=== PATIENT | male | born 1985 | race Caucasian/White ===

== ENCOUNTER 2019-12-18 12:31 | Day surgery (SDC) | payer OTHER, SELFPAY ==
[2019-12-18] VITALS (8 sets, daily range): BP systolic 134–173; BP diastolic 83–110; PULSE 89–113; RESP 14–20; TEMP 36.2–37.3; O2SAT 95–100
--- NOTE | ~2019-12-18 | CT_ITS ---
EXAMINATION: CT abdomen pelvis w con DATE: 12/18/2019 13:56 INDICATION: Abdominal pain. Diarrhea. TECHNIQUE: Computed tomography (CT) of the abdomen and pelvis was performed without intravenous contr ast. The dose-length product was 845.89 mGy-cm. Automated exposure control and iterative reconstructi on technique were employed. COMPARISON: None. FINDINGS: Lung bases are unremarkable. Heart size normal. No significant pleural or pericardial effus ion. Fatty infiltration of the liver. The spleen, pancreas, adrenal glands and kidneys are unremarkable. G allbladder is present. Nonobstructive bowel gas pattern. The appendix is thickened measuring 1.4 cm and contains an appendicolith. Minimal surrounding periapp endiceal inflammation. Colonic diverticulosis without evidence for diverticulitis. There is mild thic kening of the colon and rectum, suspicious for colitis. Small hiatal hernia. No significant vascular abnormality. No lymphadenopathy. IMPRESSION: 1. Thickened appendix containing an appendicolith. Minimal periappendiceal inflammation. Findings roverto picious for uncomplicated appendicitis. 2: Mild diffuse thickening of the colon rectum, suspicious for colitis. Reviewed, dictated and finalized at location A. IMPRESSION: 1. Thickened appendix containing an appendicolith. Minimal periappendiceal infl ammation. Findings suspicious for uncomplicated appendicitis. 2: Mild diffuse thickening of the colon rectum, suspicious for colitis.
[2019-12-18 13:12] LABS: Basophils Percent Auto 0.3 % (0.2-1.2); Eosinophils Absolute Auto 0.1 K/mm3 (0-0.3); Eosinophils Percent Auto 0.9 % (0-4.4); Hematocrit 49.2 % (42.0-52.0); Hemoglobin 17.3 g/dL (14.0-18.0); Immature Granulocyte Absolute 0.01 K/mm3 (0.00-0.031); Immature Granulocyte Percent A 0.1 % (0-0.5); Lymphocytes Absolute Auto 2.03 K/mm3 (0.9-3.2); Lymphocytes Percent Auto 22.9 % (18.3-44.2); Mean Corpuscular HGB Conc 35.2 g/dl (32-36); Mean Corpuscular Hemoglobin 29.6 pg (26-34); Mean Corpuscular Volume 84.2 fl (80-100); Mean Platelet Volume 9.8 fl (7.4-10.4); Monocytes Absolute Auto 0.4 K/mm3 (0.1-0.6); Monocytes Percent Auto 4.2 % (2.6-8.5); Neutrophils Absolute Auto 6.4 K/mm3 (1.3-6.7); Neutrophils Percent Auto 71.6 % (45.5-73.1); Platelet Count Result 294 k/mm3 (150-375); Red Blood Count 5.84 M/mm3 (4.6-6.20); Red Cell Distribution Width 13.3 % (11.5-14.5); White Blood Count 8.9 K/mm3 (4.5-10.0)
[2019-12-18] MEDS: SODIUM CHLORIDE 0.9% IV 1,000 ML 999 ML IV CONT (13:15)
[2019-12-18 13:18] LABS: Add Urine Microscopic? YES; Appearance Urine Clear (Clear); Bilirubin Urine Negative (Negative); Blood Urine Negative (Negative); Color Urine Yellow (Yellow); Glucose Urine UA Negative (Negative); Ketones Urine Negative (Negative); Leukocyte Esterase Ur Negative LEU/UL (Negative); Mucus Urine Rare /lpf; Nitrate Urine Negative (Negative); Protein Urine 1+ mg/dL (Negative); RBC Urine 0-2 /hpf (0-2); Specific Grav Ur 1.018 (1.001-1.035); Urobilinogen Urine Negative mg/dL (<2.0); WBC Urine 0-3 /hpf
[2019-12-18 13:24] LABS: Alanine Aminotransferase 43 U/L (4-50); Albumin Level 4.8 g/dL (3.5-5.1); Alkaline Phosphatase 100 U/L (38-126); Aspartate Amino Transferase 26 U/L (17-59); Bilirubin,Total 0.5 mg/dL (0.2-1.3); Blood Urea Nitrogen 10 mg/dL (9-20); Calcium 9.6 mg/dL (8.4-10.2); Carbon Dioxide 24 mmol/L (22-30); Chloride 106 mmol/L (98-107); Estimated CRCL calculation 111 ml/min; Estimated Glomerular Filt Rate > 60; Glucose 132 mg/dL (75-110); Lipase 133 U/L (23-300); Sodium 138 mmol/L (137-145)
--- NOTE | 2019-12-18 14:25 | ED.ABDPAIN ---
HPI - Abdominal Pain General Chief Complaint: Abdominal Pain Stated Complaint: abd pain Time Seen by Provider: 12/18/19 12:40 History of Present Illness HPI narrative: Patient is a 34-year-old male who presents ER with abdominal pain. Began at 5 AM is continued to progress throughout the day. He had several loose stools have been of small caliber today. Patient is found no alleviating factors. Symptoms are worse with movement and palpation of his abdomen. No nausea/vomiting/fever/chills/sweats. No burning urination or urinary frequency or urgency. He has been without hematuria or blood in his stool. Related Data Home Medications Medication Instructions Recorded Confirmed escitalopram oxalate mg 12/18/19 quetiapine 12/18/19 12/18/19 Allergies Allergy/AdvReac Type Severity Reaction Status Date / Time Penicillins Allergy Unknown Unknown Verified 12/18/19 14:30 Review of Systems Review of Systems: All systems reviewed & are unremarkable except as noted in HPI and below Constitutional: Constitutional: Denies chills, Denies fever(s) and Denies weakness ENT: Denies nasal congestion and Denies sore throat Comments: Positive rhinorrhea Cardiovascular: Cardiovascular: Denies chest pain Respiratory: Respiratory: Denies cough, Denies dyspnea and Denies wheezing Gastrointestinal: Gastrointestinal: Reports abdominal pain, Reports diarrhea, Denies nausea and Denies vomiting Genitourinary: Genitourinary: Denies hematuria, Denies dysuria and Denies urinary frequency PMFSH Past Medical History Medical History (Updated 12/18/19 @ 14:47 by Freddie Castillo MD) Pulmonary embolism Spontaneous pneumothorax 5 times Surgical History Surgical History (Updated 12/18/19 @ 14:28 by Freddie Castillo MD) No significant past surgical history Social History Social History (Updated 12/18/19 @ 14:29 by Freddie Castillo MD) Smoking status: Current every day smoker Tobacco type: cigarettes Gender identity (if verbalized by the patient): Male Exam Narrative: Exam Narrative: GENERAL: Uncomfortable-appearing, well-nourished, and in no acute distress. HEAD: Normocephalic, atraumatic. ENT: Mucous membranes moist. CHEST: Clear to auscultation. No respiratory distress. HEART: Tachycardic and regular. Normal peripheral pulses. ABDOMEN: Soft, TTP to the RLQ with guarding referring to RUQ, nondistended. EXTREMITIES: Normal range of motion. No edema. SKIN: Warm, dry, no rash. NEURO: Alert and oriented x3. Course Course Emergency Course: Patient informed results. Discussed case with Dr. García who will take patient to the OR today. Invanz ordered for antibiotics. Patient has been n.p.o. in the ER. Vital Signs Vital signs: Vital Signs Temperature 97.4 F L 12/18/19 12:49 Pulse Rate 110 H 12/18/19 12:49 Respiratory Rate 18 12/18/19 12:49 Blood Pressure 162/110 H 12/18/19 12:49 Pulse Oximetry 98 12/18/19 12:49 Temperature 99.1 F 12/18/19 14:24 Pulse Rate 89 12/18/19 14:24 Respiratory Rate 18 12/18/19 14:24 Blood Pressure 173/99 H 12/18/19 14:24 Pulse Oximetry 99 12/18/19 14:24 MDM - Abdominal Pain Lab Data Result diagrams: 12/18/19 13:05 12/18/19 13:05 Labs: Lab Results 12/18/19 12/18/19 12/18/19 Range/Units 13:05 13:05 13:09 WBC 8.9 (4.5-10.0) K/mm3 RBC 5.84 (4.6-6.20) M/mm3 Hgb 17.3 (14.0-18.0) g/dL Hct 49.2 (42.0-52.0) % MCV 84.2 (80-100) fl MCH 29.6 (26-34) pg MCHC 35.2 (32-36) g/dl RDW 13.3 (11.5-14.5) % Plt Count 294 (150-375) k/mm3 MPV 9.8 (7.4-10.4) fl Immature Gran % (Auto) 0.1 (0-0.5) % Neut % (Auto) 71.6 (45.5-73.1) % Lymph % (Auto) 22.9 (18.3-44.2) % [place] % (Auto) 4.2 (2.6-8.5) % Eos % (Auto) 0.9 (0-4.4) % Baso % (Auto) 0.3 (0.2-1.2) % Lymph # (Auto) 2.03 (0.9-3.2) K/mm3 [place] # (Auto) 0.4 (0.1-0.6) K/mm3 Eos # (Auto) 0.1 (0-0.3
[2019-12-18] MEDS: ONDANSETRON INJ 4 MG/2 ML VIAL IV PUSH (14:28)
[2019-12-18] MEDS: MORPHINE SULFATE 4 MG/ML INJ IV PUSH (14:29)
--- NOTE | 2019-12-18 14:29 | PC.NURSE ---
Reports last liquid intake aproximately 4 hours ago. Last solid intake approximately 1999 on 12/17/2019
--- NOTE | 2019-12-18 14:31 | PC.NURSE ---
Patient uses [facility]
[2019-12-18] MEDS: ERTAPENEM 1 GM/NS 50 ML 1 GM/50 ML BAG IVPB (14:50)
--- NOTE | 2019-12-18 14:56 | PM.SD ---
Same Day Admit/Disch: [facility] History of Present Illness Chief complaint: abd pain Narrative: Sarabjit Shah is a 34 year old male who developed right lower quadrant abdominal pain about 5:00 a.m. this morning. Pain got worse with time and he had some small loose stools. He has not had any nausea or vomiting. He does noticed increased pain with motion or ambulation. He was seen in the emergency room. He had tenderness with guarding in the right lower quadrant. His white blood cell count was normal. He had a CT scan which showed a thickened 1.4 cm appendix with appendicoliths consistent with early appendicitis. He is taken to surgery now as an outpatient for laparoscopic appendectomy. [facility] Past Medical History Medical History Pulmonary embolism Spontaneous pneumothorax 5 times Surgical History Surgical History No significant past surgical history Social History Social History Smoking status: Current every day smoker Tobacco type: cigarettes Gender identity (if verbalized by the patient): Male Same Day Admit/Disch: Med Pre-admit Medications Home Medications Medication Instructions Recorded Confirmed Type escitalopram oxalate [Lexapro] 20 mg PO DAILY 12/18/19 12/18/19 History hydrocodone-acetaminophen 1 - 2 tablet PO Q6H PRN #7 tablet 12/18/19 Rx ibuprofen 600 mg PO Q6H PRN #14 tablet 12/18/19 Rx quetiapine [Seroquel] 200 mg PO DAILY 12/18/19 12/18/19 History Exam Const: General: cooperative, healthy appearing, no acute distress, alert, awake, ill appearing, uncomfortable and well groomed Nutritional Appearance: thin Orientation/consciousness: patient oriented x3 HENMT: Head: normocephalic and atraumatic Mouth: Yes Normal oral and palatal mucosa present Eyes: Conjunctivae: conjunctivae normal Pupils: Equal, round and reactive pupils present EOM: EOMs intact bilaterally Neck: Neck: normal visual inspection, no lymphadenopathy and nontender Resp: Effort & Inspection: normal respiratory effort Auscultation: clear to auscultation bilaterally Cardio: Rate: regular rate Rhythm: regular rhythm Heart sounds: no gallops, no murmurs and no rubs GI: Inspection: normal to inspection, non-distended and no scars GI Palp: Yes Soft to palpation, Yes Tenderness to palpation present (GI) (Right lower quadrant hat McBurney's point), Yes Guarding due to palpation present (GI), No Hepatomegaly present, No Splenomegaly present and Yes Rebound tenderness present Auscultation: normal bowel sounds Skin: Lesions: no lesions Rashes: no rashes Neuro: General: no focal motor deficits and CN's II-XI intact bilaterally Cranial nerves: Yes Equal, round and reactive pupils present, Yes Bilaterally intact EOM present, Yes facial symmetry and Yes Midline tongue present Speech: normal speech Motor exam (neuro): 5/5 motor strength present throughout and Motor abnormalities not present Extrem: General: no clubbing, cyanosis or edema and edema Psych: Affect: normal affect Thought process: Normal thought process present Insight: Good insight present (Psych) DS: Data Data Completed and Pending Labs on day of discharge: Labs from last 24 hours 12/18/19 12/18/19 12/18/19 13:09 13:05 13:05 WBC 8.9 RBC 5.84 Hgb 17.3 Hct 49.2 MCV 84.2 MCH 29.6 MCHC 35.2 RDW 13.3 Plt Count 294 MPV 9.8 Immature Gran % (Auto) 0.1 Neut % (Auto) 71.6 Lymph % (Auto) 22.9 [place] % (Auto) 4.2 Eos % (Auto) 0.9 Baso % (Auto) 0.3 Lymph # (Auto) 2.03 [place] # (Auto) 0.4 Eos # (Auto) 0.1 Baso # (Auto) 0.0 Abs Immat Gran (auto) 0.01 Absolute Neuts (auto) 6.4 Absolute Nucleated RBC 0.0 Nucleated RBC % 0.0 Sodium 138 Potassium 4.0 Chloride 106 Carbon Dioxide 24 BUN 10 Creatinine 0.90 Estim
--- NOTE | 2019-12-18 15:00 | PC.NURSE ---
[facility] arrived from pharmacy and was taken to Pre-op with patient and given to his nurse at that time. Verbal bedside report was given to the pre-op RN.
--- NOTE | 2019-12-18 15:19 | WPDANESEPP ---
Anes - Eval Pre Procedure Procedure: Operation Date: 12/18/19 15:00 Proposed Procedures p Laparoscopic Appendectomy - Ace García MD Date/Time: 12/18/19 15:19 Surgeon: Yanira García M.D. Pre Op Diagnosis: abd pain Patient Data Age: 34 Gender: M Height: 1.83 m Weight: 96 kg Last Vital Signs Temp 37.3 C 12/18/19 14:24 Pulse 89 12/18/19 14:24 Resp 18 12/18/19 14:24 BP 173/99 H 12/18/19 14:24 Pulse Ox 99 12/18/19 14:24 Allergies Allergy/AdvReac Type Severity Reaction Status Date / Time Penicillins Allergy Unknown Fever Verified 12/18/19 15:22 Home Medications Medication Instructions Recorded Confirmed Type escitalopram oxalate mg 12/18/19 History quetiapine 12/18/19 12/18/19 History Laboratory Tests 12/18/19 12/18/19 12/18/19 13:05 13:05 13:09 WBC 8.9 K/mm3 K/mm3 (4.5-10.0) RBC 5.84 M/mm3 M/mm3 (4.6-6.20) Hgb 17.3 g/dL g/dL (14.0-18.0) Hct 49.2 % % (42.0-52.0) MCV 84.2 fl fl (80-100) MCH 29.6 pg pg (26-34) MCHC 35.2 g/dl g/dl (32-36) RDW 13.3 % % (11.5-14.5) Plt Count 294 k/mm3 k/mm3 (150-375) MPV 9.8 fl fl (7.4-10.4) Immature Gran % (Auto) 0.1 % % (0-0.5) Neut % (Auto) 71.6 % % (45.5-73.1) Lymph % (Auto) 22.9 % % (18.3-44.2) [place] % (Auto) 4.2 % % (2.6-8.5) Eos % (Auto) 0.9 % % (0-4.4) Baso % (Auto) 0.3 % % (0.2-1.2) Lymph # (Auto) 2.03 K/mm3 K/mm3 (0.9-3.2) [place] # (Auto) 0.4 K/mm3 K/mm3 (0.1-0.6) Eos # (Auto) 0.1 K/mm3 K/mm3 (0-0.3) Baso # (Auto) 0.0 K/mm3 K/mm3 (0.0-0.1) Abs Immat Gran (auto) 0.01 K/mm3 K/mm3 (0.00-0.031) Absolute Neuts (auto) 6.4 K/mm3 K/mm3 (1.3-6.7) Absolute Nucleated RBC 0.0 K/mm3 K/mm3 (0.0-0.012) Nucleated RBC % 0.0 % % (0.0-0.2) Sodium 138 mmol/L mmol/L (137-145) Potassium 4.0 mmol/L mmol/L (3.4-5.0) Chloride 106 mmol/L mmol/L (98-107) Carbon Dioxide 24 mmol/L mmol/L (22-30) BUN 10 mg/dL mg/dL (9-20) Creatinine 0.90 mg/dL mg/dL (0.7-1.3) Estim Creat Clear Calc 111 ml/min ml/min Estimated GFR > 60 (59 - ) Glucose 132 mg/dL H mg/dL (75-110) Calcium 9.6 mg/dL mg/dL (8.4-10.2) Total Bilirubin 0.5 mg/dL mg/dL (0.2-1.3) AST 26 U/L U/L (17-59) ALT 43 U/L U/L (4-50) Alkaline Phosphatase 100 U/L U/L (38-126) Total Protein 8.0 g/dL g/dL (6.3-8.2) Albumin 4.8 g/dL g/dL (3.5-5.1) Lipase 133 U/L U/L (23-300) Urine Color Yellow (Yellow) Urine Appearance Clear (Clear) Urine pH 8.0 (5.0-9.0) Ur Specific [place] 1.018 (1.001-1.035) Urine Protein 1+ mg/dL H mg/dL (Negative) Urine Glucose (UA) Negative mg/dL mg/dL (Negative) Urine Ketones Negative mg/dL mg/dL (Negative) Ur Blood (Man) Negative (Negative) Urine Nitrate Negative (Negative) Urine Bilirubin Negative (Negative) Urine Urobilinogen Negative mg/dL mg/dL (<2.0) Leukocyte Esterase Rfl Negative SHANON/UL SHANON/UL (Negative) Urine RBC 0-2 /hpf /hpf (0-2) Urine WBC 0-3 /hpf /hpf Urine Mucus Rare /lpf /lpf Patient hx anesthesia problems: none Family hx anesthesia problems: none PMFSH Past Medical History Medical History Pulmonary embolism Spontaneous pneumothorax 5 times Surgical History Surgical History No significant past surgical history Social History Social History Smoking status:
--- NOTE | 2019-12-18 15:37 | WPDANESEFPP ---
Anes - Eval Final PreProcedure Day of Procedure 12/18/19 15:37 Patient weight: overweight Heart: regular rate and rhythm Lungs: clear to auscultation Airway: Mallampati scale class II Neurological: alert and oriented Last oral intake: >/= 8 hours ASA classification: III Emergent: yes Anesthetic plan: proceed Anesthesia type and monitoring: general ETT and standard monitoring Informed Consent: The patient's anesthetic plan and its attendant risks and benefits were discussed with the patient/family/POA. Questions were solicited and answers provided to the satisfaction of the patient/family/POA.
[2019-12-18] MEDS: LACTATED RINGERS 1,000 ML 30 ML IV CONT ×2 (15:39→16:38)
[2019-12-18] MEDS: BUPIVACAINE/EPINEPHRINE 0.5% 30 ML VIAL INFILTRATE (16:02)
--- NOTE | 2019-12-18 16:21 | PM.PROC ---
Procedure Note - Detailed Date of procedure: 12/18/19 Pre-op diagnosis: abd pain acute appendicitis Post-op diagnosis: same Procedure performed: Laparoscopic appendectomy Description of procedure: The patient was taken to surgery and induced into general anesthesia. The abdomen was prepped and draped. Trocars were placed in the usual fashion using 0.5% Marcaine with epinephrine and applied Medical optical trocars. A 5 mm camera was used. The patient was placed in Trendelenburg with the right side elevated. The appendix was found and was elevated anteriorly. Dissection was carried out in the mesoappendix. The mesoappendix was dissectedand the appendiceal vessels cauterized for hemostasis. Eventually the base of the appendix was skeletonized. The appendix was ligated at its base with a Vicryl endo-loop. It was amputated just above the ligature and the mucosa of the appendiceal stump was cauterized. The appendix was immediately placed in an Endo-Catch bag and retrieved through the 10 11 left lower quadrant trocar site. We replaced the 10 11 trocar and reviewed the right lower quadrant and areas of dissection. All looked good with no evidence of bleeding or other problems. We evacuated CO2 and removed the trocar sleeves. Skin wounds were closed with subcuticular 4 O Monocryl skin suture. The wounds were dressed with Exofin surgical adhesive. The patient was awakened and taken to recovery in good condition. Sponge and needle counts were correct x2. Anesthesia: GETA and local (0.5% Marcaine with epinephrine) Surgeon: Ace García MD Cardiovascular Lab Director: Hira ADAMS Estimated blood loss (mL): 5 Drains: No Packing: No Pathology: yes (Appendix) Complications: None Condition: stable Disposition: PACU Findings: Acute non perforated appendicitis
== END 2019-12-18 17:56 | disposition home or self-care (01) ==
LOC: ANHED 14:48 → ANHSURGERY 14:48
PROVIDERS: Emergency Provider Emergency Medicine; Visit Provider Surgery
PROC: 0DTJ4ZZ Resection of Appendix, Percutaneous Endoscopic Approach (ICD-10-PCS; CPT 44970; principal; 2019-12-18 15:00)
DX: K38.8 Other specified diseases of appendix (principal); F17.210 Nicotine dependence, cigarettes, uncomplicated; Z86.711 Personal history of pulmonary embolism
CPT/HCPCS: 44970; 36415; 74177; 80053; 81001; 83690; 85025; 88304; 96374; 96375; 99285; J0330; J1100; J1335; J2250; J2270; J2405; J2704; J2710; J3010; J7030; J7120; Q9967

== ENCOUNTER 2020-03-12 08:17 | Emergency (ER) | payer OTHER, SELFPAY ==
--- NOTE | ~2020-03-12 | CT_ITS ---
EXAMINATION: CTA chest PE protocol DATE: 03/12/2020 09:03 INDICATION: Dyspnea. TECHNIQUE: Computed tomography angiography (CTA) of the chest was performed with 100 mL Omnipaque-350 intravenous contrast timed to evaluate the pulmonary arteries. Coronal maximum intensity projection 3D-reconstructions were created by the technologist. Automated exposure control and iterative reconst ruction technique were employed. The dose-length product was 624.52 mGy-cm. COMPARISON: Chest CT 06/01/2018 FINDINGS: There is mild emphysema. There are staple lines at the lung apices. There is mild atelectas is bilaterally. There is a trace left pleural effusion. The heart size is normal. No pericardial effu jimena. There is no pulmonary embolus. There is mild right hilar lymphadenopathy, likely reactive. Ther e is diffuse hepatic steatosis. There is mild thoracic spondylosis. IMPRESSION: 1. No pulmonary embolus. 2. Mild emphysema. Reviewed, dictated and finalized at location A.
--- NOTE | ~2020-03-12 | XR_ITS ---
EXAMINATION: XR chest 1V portable EXAM DATE: 03/12/2020 08:36 INDICATION: Shortness of breath. TECHNIQUE: Portable AP frontal chest x-ray was obtained. Comparison is made to prior examination from 06/01/2018. FINDINGS: The lungs are clear. There are no pleural effusions. Mild cardiomegaly. There is no pneu mothorax suspected. The bones and soft tissues are unremarkable. IMPRESSION: No acute cardiopulmonary findings. Reviewed, dictated and finalized at location A.
[2020-03-12 08:23] VITALS: BP 133/98; PULSE 131; RESP 17; TEMP 36.7; O2SAT 98
--- NOTE | 2020-03-12 08:28 | ECG_ITS ---
Measurements Intervals [place] Rate: 127 P: 50 CA: 156 QRS: 29 QRSD: 88 T: 19 QT: 311 QTc: 452 Interpretive Statements SINUS TACHYCARDIA INCOMPLETE RIGHT BUNDLE BRANCH BLOCK BORDERLINE T WAVE ABNORMALITY- INFERIOR LEADS ABNORMAL ECG Electronically Signed On 03-12-2020 8:54:38 CDT by Regino Wilson D.O.
[2020-03-12 08:44] LABS: Basophils Percent Auto 0.7 % (0.2-1.2); Eosinophils Absolute Auto 0.1 K/mm3 (0-0.3); Eosinophils Percent Auto 2.2 % (0-4.4); Hematocrit 43.9 % (42.0-52.0); Hemoglobin 15.7 g/dL (14.0-18.0); Immature Granulocyte Absolute 0.03 K/mm3 (0.00-0.031); Immature Granulocyte Percent A 0.5 % (0-0.5); Lymphocytes Absolute Auto 2.13 K/mm3 (0.9-3.2); Lymphocytes Percent Auto 36.4 % (18.3-44.2); Mean Corpuscular HGB Conc 35.8 g/dl (32-36); Mean Corpuscular Hemoglobin 30.5 pg (26-34); Mean Corpuscular Volume 85.2 fl (80-100); Monocytes Absolute Auto 0.4 K/mm3 (0.1-0.6); Monocytes Percent Auto 7.5 % (2.6-8.5); Neutrophils Absolute Auto 3.1 K/mm3 (1.3-6.7); Neutrophils Percent Auto 52.7 % (45.5-73.1); Platelet Count Result 227 k/mm3 (150-375); Red Blood Count 5.15 M/mm3 (4.6-6.20); Red Cell Distribution Width 12.7 % (11.5-14.5); White Blood Count 5.9 K/mm3 (4.5-10.0)
--- NOTE | 2020-03-12 08:48 | ED.SOB ---
HPI - SOB/Dyspnea General Chief Complaint: Shortness of Breath/Dyspnea Stated Complaint: trouble breathing Time Seen by Provider: 03/12/20 08:22 Source: RN notes reviewed History of Present Illness HPI Narrative: Patient presents emergency department from home for shortness of breath. Patient states symptoms been ongoing for the past 3 days and worsened last night. States that this coincides with him stopping cigarette use approximately 3 days ago. He states it feels that he cannot take a deep breath. He denies any fevers or chills chest pain abdominal pain nausea vomiting or any other symptoms. States he does have a history of pulmonary embolism 2 years ago and was on blood thinners for 6 months with resolution and is been off blood thinner since that time. Patient also states a history of pneumothorax. Denies any other symptoms at this time Related Data Home Medications Medication Instructions Recorded Confirmed escitalopram oxalate [Lexapro] 20 mg PO DAILY 12/18/19 12/18/19 quetiapine [Seroquel] 400 mg PO DAILY 12/18/19 12/18/19 melatonin 10 mg PO HS PRN 03/12/20 03/12/20 Allergies Allergy/AdvReac Type Severity Reaction Status Date / Time No Known Allergies Allergy Verified 03/12/20 08:29 Review of Systems Review of Systems: Narrative: Gen.: Denies fevers or chills Eyes: Denies eye pain or visual change ENT: Denies congestion Respiratory: See HPI CV: Denies chest pain or palpitations GI: Denies abdominal pain nausea, emesis or diarrhea Musculoskeletal: Denies back pain or muscle pain Neuro: Denies numbness, tingling, weakness or focal weakness Skin: Denies rash Except as documented, all other systems reviewed and negative [facility] Past Medical History Medical History Pulmonary embolism Spontaneous pneumothorax 5 times Social History Social History Smoking status: Current every day smoker Tobacco type: cigarettes Gender identity (if verbalized by the patient): Male Exam Narrative: Exam Narrative: APPEARANCE: No acute distress, nontoxic, resting in bed EYES: EOMI HEENT: Normocephalic, atraumatic, OMM RESPIRATORY: No respiratory distress Clear to auscultation bilaterally with no rhonchi wheezing or rales. CARDIOVASCULAR: Tachycardic and regular without murmurs rubs or gallops. ABDOMINAL: Soft, nontender, nondistended, no rebound or guarding MUSCULOSKELETAl: Moves all extremities. No clubbing, cyanosis or edema. NEURO: Awake and alert. Following commands, speech normal, no focal deficits SKIN:: Warm, dry. No rashes lesions or abrasions PSYCHIATRIC: Anxious in appearance Course Course Emergency Course: Patient given breathing treatment in the ED states he is feeling much better at this time Discussed with patient results of workup and diagnosis. Discussed need for follow-up with primary care, proper use of medication, and reasons to return to the emergency department. Patient understands and agrees to current treatment plan Vital Signs Vital signs: Vital Signs Temperature 98.0 F 03/12/20 08:23 Pulse Rate 131 H 03/12/20 08:23 Respiratory Rate 17 03/12/20 08:23 Blood Pressure 133/98 H 03/12/20 08:23 Pulse Oximetry 98 03/12/20 08:23 Temperature 98.0 F 03/12/20 08:23 Pulse Rate 106 H 03/12/20 11:30 Respiratory Rate 18 03/12/20 11:30 Blood Pressure 137/84 03/12/20 11:30 Pulse Oximetry 95 03/12/20 11:30 MDM - SOB/Dyspnea MDM Narrative Medical decision making narrative: Patient has dyspnea of unclear etiology. No wheezing on clinical exam. Low risk well score, PE is felt unlikely. No abnormalities noted on chest x-ray. Patient?s EKG is without high-risk changes. Oxygen saturations are normal. Patient is felt to be a reasonable candidate for additional evaluation as an outpatient.. Patient stopping tobacco use 3 days ago I do believe component is possibly anxie
[2020-03-12 08:54] LABS: Blood Urea Nitrogen 21 mg/dL (9-20); Calcium 9.1 mg/dL (8.4-10.2); Carbon Dioxide 23 mmol/L (22-30); Chloride 107 mmol/L (98-107); Estimated CRCL calculation 143 ml/min; Estimated Glomerular Filt Rate > 60; Glucose 157 mg/dL (75-110); Sodium 138 mmol/L (137-145)
[2020-03-12 08:56] LABS: Estimated CRCL calculation 116 ml/min; Estimated Glomerular Filt Rate > 60
[2020-03-12 09:04] LABS: Prothrombin Time 12.8 Seconds (11.1-14.7)
[2020-03-12 09:05] LABS: Partial Thromboplastin Time 24.6 SECONDS (22.3-36.8)
[2020-03-12 09:22] VITALS: PULSE 104; RESP 20
[2020-03-12] MEDS: SODIUM CHLORIDE 0.9% IV 1,000 ML 999 ML IV CONT (09:22)
[2020-03-12 09:23] VITALS: BP 143/93; PULSE 112; RESP 15; O2SAT 95
[2020-03-12] MEDS: ALBUTEROL SULFATE NEB 2.5 MG/0.5 ML INH 5 MG INHALATION (09:34)
[2020-03-12] MEDS: IPRATROPIUM BR 0.02% INH SOLN 0.5 MG/2.5 ML VIAL INHALATION (09:34)
[2020-03-12 10:18] LABS: Troponin I < 0.012 ng/mL (0.000-0.034)
[2020-03-12 11:30] VITALS: BP 137/84; PULSE 106; RESP 18; O2SAT 95
[2020-03-12 12:05] VITALS: BP 122/82; PULSE 112; RESP 20; O2SAT 99
== END 2020-03-12 12:06 | disposition home or self-care (01) ==
PROVIDERS: Emergency Provider Emergency Medicine
DX: J45.901 Unspecified asthma with (acute) exacerbation (principal); J43.9 Emphysema, unspecified; R00.0 Tachycardia, unspecified; I45.10 Unspecified right bundle-branch block; R94.31 Abnormal electrocardiogram [ECG] [EKG]; F17.210 Nicotine dependence, cigarettes, uncomplicated; Z86.711 Personal history of pulmonary embolism
CPT/HCPCS: 36415; 71045; 71275; 80048; 84484; 85025; 85610; 85730; 93005; 94640; 96361; 96374; 99284; J2060; J7030; Q9967

== ENCOUNTER 2022-02-03 04:32 | Emergency (ER) | payer OTHER, SELFPAY ==
[2022-02-03 04:34] VITALS: BP 122/74; PULSE 82; RESP 18; TEMP 36.6; O2SAT 98
--- NOTE | 2022-02-03 04:45 | ED.GENADULT ---
HPI - General Adult General Chief complaint: Wound/Laceration Stated complaint: right index finger lac Time Seen by Provider: 02/03/22 04:38 History of Present Illness HPI narrative: 36-year-old male presenting to the emergency department for evaluation of an avulsion laceration to his right index finger. Patient reports he was whittling when he injured his finger. Patient had to walk to the police station to contact 911. Patient states his tetanus is up-to-date as of 5 years ago Related Data Home Medications Medication Instructions Recorded Confirmed escitalopram oxalate 20 mg tablet 20 mg PO DAILY 12/18/19 12/18/19 (Lexapro) quetiapine 200 mg tablet (Seroquel) 400 mg PO DAILY 12/18/19 12/18/19 melatonin 10 mg tablet 10 mg PO HS PRN Insomnia 03/12/20 03/12/20 Allergies Allergy/AdvReac Type Severity Reaction Status Date / Time No Known Allergies Allergy Verified 03/12/20 08:29 Review of Systems Review of Systems: CONSTITUTIONAL: Denies fever, chills, or sweats. EYES: Denies visual changes, redness, or discharge. ENT: Denies rhinorrhea, congestion, sore throat, or otalgia. CARDIOVASCULAR: Denies chest pain, palpitations, or edema. RESPIRATORY: Denies cough or dyspnea. GASTROINTESTINAL: Denies abdominal pain, nausea, vomiting, or diarrhea. GENITOURINARY: Denies dysuria or hematuria. SKIN: Avulsion laceration to right index finger MUSCULOSKELETAL: Denies back pain, joint pain, or myalgia. NEUROLOGIC: Denies headache, numbness, or weakness. PMFSH Past Medical History Medical History (Updated 02/03/22 @ 04:59 by Noel Lopez MD) Pulmonary embolism Spontaneous pneumothorax 5 times Surgical History Surgical History No significant past surgical history Social History Social History Smoking status: Current every day smoker Tobacco type: cigarettes Gender identity (if verbalized by the patient): Male Exam Narrative: APPEARANCE: Well appearing, no pain, no distress, well-nourished. HEAD: normocephalic, atraumatic. EYES: PERRLA/EOMI, conjunctivae clear. NOSE: Normal no drainage RESPIRATORY: Airway patent, respirations nonlabored. Clear to auscultation bilaterally, no rales, rhonchi, wheezing. CARDIOVASCULAR: Regular rate and rhythm without murmurs rubs or gallops. ABDOMINAL: Soft, nontender, nondistended, normal bowel sounds MUSCULOSKELETAL: Moves all extremities. Strength/ROM intact, No edema, No calf tenderness. NEURO: Alert. Cranial nerves II through XII intact. Good gait. Good coordination SKIN: 3 cm avulsion laceration to medial aspect of right index finger Course Course Emergency Course: On arrival to the emergency department bleeding was almost completely resolved. A pressure dressing was applied for 30 minutes. Dressing was changed and bleeding resolved. Patient was started on Augmentin. Patient was gradual close follow-up with his primary care physician. Vital Signs Vital signs: Vital Signs Temperature 97.9 F 02/03/22 04:34 Pulse Rate 82 02/03/22 04:34 Respiratory Rate 18 02/03/22 04:34 Blood Pressure 122/74 02/03/22 04:34 Pulse Oximetry 98 02/03/22 04:34 Oxygen Delivery Room Air 02/03/22 04:34 Temperature 97.9 F 02/03/22 04:34 Pulse Rate 82 02/03/22 04:34 Respiratory Rate 18 02/03/22 04:34 Blood Pressure 122/74 02/03/22 04:34 Pulse Oximetry 98 02/03/22 04:34 Oxygen Delivery Room Air 02/03/22 04:34 Medical Decision Making Vital Signs Vital Signs: Vital Signs Temperature 97.9 F 02/03/22 04:34 Pulse Rate 82 02/03/22 04:34 Respiratory Rate 18 02/03/22 04:34 Blood Pressure 122/74 02/03/22 04:34 Pulse Oximetry 98 02/03/22 04:34 Oxygen Delivery Room Air 02/03/22 04:34 Temperature 97.9 F 02/03/22 04:34 Pulse Rate 82 02/03/22 04:34 Respiratory Rate 18 02/03/22 04:34 Blood Pressure 122
[2022-02-03] MEDS: AMOXICILLIN/CLAVULANATE K 875-125 MG TAB 1 TABLET PO (05:21)
== END 2022-02-03 05:42 | disposition home or self-care (01) ==
PROVIDERS: Emergency Provider Emergency Medicine
DX: S61.214A Laceration without foreign body of right ring finger without damage to nail, initial encounter (principal); Z86.711 Personal history of pulmonary embolism; F17.210 Nicotine dependence, cigarettes, uncomplicated; W26.9XXA Contact with unspecified sharp object(s), initial encounter
CPT/HCPCS: 99283; A9270